=== PATIENT | male | born 1940 | race Caucasian/White ===

== ENCOUNTER 2023-01-31 15:19 | Emergency (ER) | payer MEDICARE, BC ==
[~2023-01-31] VITALS: Ht 180.3 cm; Wt 69.9 kg
--- NOTE | 2023-01-31 15:40 | NUR ---
PATIENT CAME TO EMERGENCY DEPARTMENT FOR SKIN ABBRESSION ON HIS LEFT HAND AFTRT A FALL.ALERT AND ORIENTED.ON ROOM AIR.ATTACHED TO MONITOR AND PULSE OXYMETER.AWAITING FOR MD FOR LUIGI.
--- NOTE | 2023-01-31 15:45 | NUR ---
Note jarrod in ED - 01/31/23 at 1750 by JEWEL BIB FAMILY STATING THAT HE HAS A GLF GOING DOWN THE STAIRS A HAVE ABRASIONS ON HIS L ARM, NO TRAUMA.
--- NOTE | 2023-01-31 17:00 | NUR ---
DR CHUA AT BED SIDE FOR EVAL
--- NOTE | 2023-01-31 17:15 | NUR ---
EMT AT BED SIDE FOR WOUND CLEANING AND APPILIED DRESSING PER DR HARSHIL FRANK.
[2023-01-31] MEDS ORDERED: BACITRACIN ZINC OINT PACKET 1 EA PACKET TP ONE (17:30)
[2023-01-31] MEDS ORDERED: BACI30OI9 TP (17:37)
--- NOTE | 2023-01-31 17:40 | NUR ---
Alma garay in EDM - 01/31/23 at 1750 by GABRIELLE PATIENT CAME TO EMERGENCY DEPARTMENT FOR SKIN ABBRESSION ON HIS LEFT HAND AFTRT A FALL.ALERT AND ORIENTED.ON ROOM AIR.ATTACHED TO MONITOR AND PULSE OXYMETER.AWAITING FOR MD FOR LUIGI.
--- NOTE | 2023-01-31 17:51 | NUR ---
Patient discharged to home in stable condition. Written and verbal after care instructions given. Patient verbalizes understanding of instruction.
[2023-01-31 17:52] VITALS: BP 124/70; TEMP 98.2; O2SAT 98
== END 2023-01-31 17:53 | disposition home or self-care (01) ==
LOC: ER 15:49
DX: S51.012A Laceration without foreign body of left elbow, initial encounter (principal); F03.90 Unspecified dementia, unspecified severity, without behavioral disturbance, psychotic disturbance, mood disturbance, and anxiety; W10.9XXA Fall (on) (from) unspecified stairs and steps, initial encounter; Y93.89 Activity, other specified; Y92.89 Other specified places as the place of occurrence of the external cause; Y99.8 Other external cause status